=== PATIENT | female | born 1980 | race Caucasian/White ===

== ENCOUNTER 2017-02-01 20:54 | Emergency (ER) | payer SELFPAY ==
[~2017-02-01] VITALS: Ht 162.6 cm; Wt 55.0 kg
[~2017-02-01 20:54] MED LIST: AMOX875 PO; BENZ100 PO; IBUP800T23 PO; ZITH250T PO
[2017-02-01 20:55] VITALS: BP 96/64; PULSE 116; RESP 16; TEMP 98.3; O2SAT 95
--- NOTE | 2017-02-01 22:26 | PD ---
HPI Chief Complaint: Complaint Time Seen by Provider: 22:22 Travel History International Travel<30 days: No Contact w/Intl Traveler<30days: No Traveled to known affect area: No History of Present Illness HPI Patient's 36-year-old female presenting to emergency evaluation of urinary symptoms. Patient states for the last 4 days she has had darker urine, frequency, burning when she urinates. She reports low back pain, no vomiting or nausea. She further denies any abdominal pain, fevers, chills. PFSH Past Medical History Hx Anticoagulant Therapy: No Arthritis: No Asthma: No Autoimmune Disease: No Anxiety: Yes Depression: Yes Heart Rhythm Problems: No Cancer: No Cardiovascular Problems: No High Cholesterol: No Chemotherapy: No Chest Pain: No Congestive Heart Failure: No COPD: No Cerebrovascular Accident: No Diabetes: No Diminished Hearing: No Endocrine: No Gastrointestinal Disorders: Yes GERD: No Genitourinary: No Hiatal Hernia: No Immune Disorder: No Kidney Stones: No Musculoskeletal: No Neurologic: No Reproductive: No Respiratory: No Immunizations Current: Yes Migraines: No Radiation Therapy: No Renal Failure: No Seizures: No Sickle Cell Disease: No Sleep Apnea: No Thyroid Disease: No Ulcer: No ?: Not LMP: 01/07/17 : 4 Para: 2 : 2 Tubal Ligation: Yes Past Surgical History Abdominal Surgery: No AICD: No Arteriovenous Shunt: No Cardiac Surgery: No Ear Surgery: No Endocrine Surgery: No Eye Surgery: No Genitourinary Surgery: No Gynecologic Surgery: Yes (BTL) Insulin Pump: No Joint Replacement: No Oral Surgery: No Pacemaker: No Thoracic Surgery: No Social History Alcohol Use: No Tobacco Use: Yes (1/2 PPD) Substance Use: Yes (MARIJUANA//METHAMPHENAPHINE LAST USE ) Allergies-Medications (Allergen,Severity, Reaction): Coded Allergies: No Known Allergies (Verified , 02/01/17) Reported Meds & Prescriptions Reported Meds & Active Scripts Active No Active Prescriptions or Reported Medications Review of Systems Except as stated in HPI: all other systems reviewed are Neg Genitourinary: Positive: Frequency, Dysuria Physical Exam Narrative GENERAL: Well-developed, well-nourished, alert female. Resting in no acute distress. SKIN: Warm and dry. HEAD: Atraumatic. Normocephalic. EYES: Pupils equal and round. No scleral icterus. No injection or drainage. ENT: No nasal bleeding or discharge. Mucous membranes pink and moist. NECK: Trachea midline. No JVD. CARDIOVASCULAR: Regular rate and rhythm. RESPIRATORY: No accessory muscle use. Clear to auscultation. Breath sounds equal bilaterally. GASTROINTESTINAL: Abdomen soft, non-tender, nondistended. Hepatic and splenic margins not palpable. MUSCULOSKELETAL: Extremities without clubbing, cyanosis, or edema. No obvious deformities. No CVAT bilaterally. NEUROLOGICAL: Awake and alert. No obvious cranial nerve deficits. Motor grossly within normal limits. Five out of 5 muscle strength in the arms and legs. Normal speech. PSYCHIATRIC: Appropriate mood and affect; insight and judgment normal. Data Data Last Documented VS Vital Signs Date Time Temp Pulse Resp B/P Pulse Ox O2 Delivery O2 Flow Rate FiO2 02/01/17 22:29 89 16 110/67 99 02/01/17 20:55 98.3 Room Air Orders Urinalysis - C+S If Indicated (02/01/17 22:08) Urine Culture (02/01/17 22:15) Labs Laboratory Tests Test 02/01/17 22:15 Urine Color DARK-BROWN Urine Turbidity CLOUDY Urine pH 6.0 Urine Specific [place] 1.025 Urine Protein 30 mg/dL Urine Glucose (UA) NEG mg/dL Urine Ketones TRACE mg/dL Urine Occult Blood TRACE Urine Nitrite NEG Urine Bilirubin LARGE Urine Urobilinogen 4.0 MG/DL Urine Leukocyte Esterase TRACE Urine RBC 4 /hpf Urine WBC 20 /hpf Urine Squamous Epithelial 26 /hpf Cells Urine Transitional Epithelial 1 /hpf Cells Urine Renal Epithelial Cells 5 /hpf Urine Bacteria OCC /hpf Urine Hyaline Casts 37 /lpf Urine Mucus MANY /lpf Microscopic Urinalysis Comment CULTURE INDICATED MDM Medical Decision Making Medical Screen Exam Complete: Yes Emergency Medical Condition: Yes Interpretation(s) Vital Signs Date Time Temp Pulse Resp B/P Pulse Ox O2 Delivery O2 Flow Rate FiO2 02/01/17 20:55 98.3 116 16 96/64 95 Room Air Differential Diagnosis UTI versus pyelonephritis versus kidney stone versus other Narrative Course Patient is a 36-year-old female presenting with 4 days of dark urine, dysuria. Patient was tachycardic on arrival, Vital signs reassessed and are stable, patient is afebrile. There is no CVA tenderness bilaterally. Patient looks well-hydrated. Urinalysis ordered and pending Urinalysis is indicative of urinary tract infection with elevated red blood cells, white blood cells, leukocyte esterase. Patient is encouraged to increase fluid intake. She is encouraged to complete full course of antibiotics as prescribed. She was encouraged to return to emergency department for new or worsening symptoms. Patient verbalizes understanding of instructions. Patient is stable for discharge. Diagnosis Primary Impression: Urinary tract infection Qualified Code: N39.0 - Urinary tract infection with hematuria, site unspecified Referrals: [facility] Primary Care Physician Patient Instructions: General Instructions, Urinary Tract Infection in Women ( ED) Additional Instructions: Follow-up with your primary doctor Increase fluid intake Complete full course of antibiotics as prescribed Return to emergency department for any new or worsening symptoms Med/Other Pt SpecificInfo: Prescription(s) given Scripts Ciprofloxacin (Cipro)500 Mg [id number] Mg PO BID 7 Days Ref 0 Prov:Elke Flower 02/01/17 Disposition: 01 DISCHARGE HOME Condition: Stable Elke Flower Feb 01, 2017 22:25
[2017-02-01 22:29] VITALS: BP 110/67; PULSE 89; RESP 16; O2SAT 99
[2017-02-01 22:58] LABS: BACTERIA, URINE OCC /hpf; BLOOD, URINE TRACE (NEG); GLUCOSE,URINE NEG (NEG); HYALINE CAST, URINE 37 /lpf (RARE); KETONE, URINE TRACE mg/dL (NEG); MUCUS URINE MANY /lpf (OCC); NITRITE,URINE NEG (NEG); RENAL EPITHELIAL CELLS 5 /hpf; SQUAMOUS EPITHELIAL CELL URINE 26 /hpf (0-5); TRANSITIONAL EPI CELLS, URINE 1 /hpf
[2017-02-01 23:00] LABS: COMMENT (UR) CULTURE INDICATED; CULTURE IF INDICATED CULTURE INDICATED; URINE COLOR DARK-BROWN (YELLW/STRAW)
[2017-02-01] MEDS ORDERED: CIPR-9 PO (23:06)
[2017-02-01] MEDS ORDERED: CIPROFLOXACIN 500 MG TAB PO ONE (23:15)
== END 2017-02-01 23:39 | disposition home or self-care (01) ==
LOC: NEPD 20:54
DX: N39.0 Urinary tract infection, site not specified (principal); R31.9 Hematuria, unspecified; B96.20 Unspecified Escherichia coli [E. coli] as the cause of diseases classified elsewhere
CPT/HCPCS: 81001; 87077; 87086; 87186; 99283

== ENCOUNTER 2018-04-24 14:31 | Inpatient (IN) ==
[2018-04-24] MEDS ORDERED: Clindamycin Inj 600 MG/4 ML Vial IV.SIG ONE (16:11)
[2018-04-24] MEDS ORDERED: Ketorolac Inj 30 MG/ML (IVP) Vial IV.PUSH ONE (16:11)
[2018-04-24 16:46] LABS: Baso # (Auto) 0.1 th/mm3 (0.0-0.2); Baso % (Auto) 0.8 % (0.0-2.0); Eos # (Auto) 0.1 th/mm3 (0.0-0.4); Eos % (Auto) 1.9 % (0.0-4.0); Hematocrit 41.4 % (35.0-46.0); Hemoglobin 13.7 gm/dL (11.6-15.3); Lymph # (Auto) 2.3 th/mm3 (1.0-4.8); Lymph % (Auto) 30.8 % (9.0-44.0); Mean Corpuscular HGB Conc 33.1 % (32.0-36.0); Mean Corpuscular Hemoglobin 28.4 pg (27.0-34.0); Mean Corpuscular Volume 85.7 fL (80.0-100.0); Mean Platelet Volume 8.4 fL (7.0-11.0); Mono # (Auto) 0.6 th/mm3 (0.0-0.9); Mono % (Auto) 7.7 % (0.0-8.0); Neut # (Auto) 4.3 th/mm3 (1.8-7.7); Neut % (Auto) 58.8 % (16.0-70.0); Platelet Count 200 th/mm3 (150-450); Red Blood Count 4.83 mil/mm3 (4.00-5.30); Red Cell Distribution Width 13.4 % (11.6-17.2); White Blood Count 7.4 th/mm3 (4.0-11.0)
[2018-04-24 17:04] LABS: Calcium 8.5 mg/dL (8.5-10.1); Carbon Dioxide 24.3 meq/L (21.0-32.0)
--- NOTE | 2018-04-24 18:15 | ED ---
HPI General Chief complaint: Dental/Oral Stated complaint: Medical Complaint Time Seen by Provider: 04/24/18 15:47 Source: patient Mode of arrival: ambulatory Limitations: no limitations History of Present Illness HPI narrative: 38-year-old female presents to the emergency department with complaint of swelling to her left lower facial cheek since last night. She says this problem started on March 06 and she has been taking antibiotics that have been given to her by friends and the problem has been coming and going. She says it has never been this bad. Reports history of tooth infection to her left lower jaw. Denies fever, vomiting. Denies sore throat, difficulty swallowing, unusual drooling, lump in throat. Denies alcohol, tobacco use. Reports methamphetamine and marijuana use. Rates pain 05/09. No treatments tried. Said she last took antibiotics a few weeks ago. Primary care provider. No dentist. No known allergies. Reports history of asthma. Has no other medical complaints. No other modifying factors or associated signs and symptoms. Related Data Previous Rx's Medication Instructions Recorded amoxicillin-pot clavulanate 1 tab PO Q12H #28 tab 04/25/18 [Augmentin] dexamethasone 4 mg PO Q8H #15 tab 04/25/18 tramadol 50 mg PO Q6H #12 tab 04/25/18 Allergies Allergy/AdvReac Type Severity Reaction Status Date / Time No Known Allergies Allergy Verified 04/24/18 15:35 Review of Systems ROS: all other systems reviewed are negative [facility] Medical History Medical History Broken back (Acute) Hernia (Acute) Family History Family History Other Family history normal Social History Social History Substance History: Active Abuse Second Hand Smoke Exposure: Yes Smoking Status: Current every day smoker Tobacco Type: Cigarettes Packs Per Day: 0.5 Cigarettes Per Day: 10.0 Years Smoked: 20 Pack-Years: 10.00 How Often Do You Have a Drink Containing Alcohol: Never Recent Travel in [facility] within the Last 8 Weeks: No Recent Out of Country Travel within the Last 8 Weeks: No Substance Abuse Detail Methamphetamine: Substance Use Status: Active Route Used Substance Abuse: Inhalation Marijuana: Substance Use Status: Active Route Used Substance Abuse: Inhalation Immunization History Tetanus Immunization: Unsure Hx Influenza Vaccine This Season: Unable to Assess Exam Narrative Exam Narrative: GENERAL: Well-nourished, well-developed female patient , in no acute distress; afebrile, nontoxic-appearing SKIN: Warm and dry. HEAD: Atraumatic. Normocephalic. Left lower mandibualr area with palpable mass that is nonfluctuant and without erythema; with tenderness on palpation. No lymphadenopathy. EYES: Pupils equal and round. No scleral icterus. No injection or drainage. ENT: Mucosa pink and moist. No erythema or exudates. No uvular edema. No uvular , palatal, or tonsillar deviation. Airway patent. EARS: Bilateral pinnae and external canals appear within normal limits. Bilateral tympanic membranes without erythema, dullness or perforation. MOUTH: Mucous membranes moist, no lesions, tongue and gums appear normal. Poor dentition throughout. Partially edentulous. Left lower, I believe first molar , with complex dental cavity and decay; with tenderness on palpation. There is no fluctuance or outpouching to the left lower gingiva. Surrounding gingiva is without erythema, edema, drainage. No obvious gingival abscess noted. NECK: Trachea midline. No lymphadenopathy. CARDIOVASCULAR: Regular rate. RESPIRATORY: No accessory muscle use. GASTROINTESTINAL: Flat. MUSCULOSKELETAL: No obvious deformities. No clubbing. No cyanosis. No edema. NEUROLOGICAL: Awake and alert. Oriented 3. No obvious cranial nerve deficits. Motor grossly within normal limits. Normal speech. PSYCHIATRIC: Appropriate mood and affect; insight and judgment normal. Course Initial Documented Vital Signs Temperature 97.6 F 04/24/18 14:33 Pulse Rate 106 H 04/24/18 14:33 Respiratory Rate 18 04/24/18 14:33 Blood Pressure 137/66 04/24/18 14:33 Pulse Oximetry 95 04/24/18 14:33 Last Documented Vital Signs Temperature 97.2 F L 04/25/18 08:00 Pulse Rate 67 04/25/18 08:00 Respiratory Rate 18 04/25/18 08:00 Blood Pressure 101/58 L 04/25/18 08:00 Pulse Oximetry 96 04/25/18 08:00 Medical Decision Making [facility] Narrative Medical decision making narrative: 38-year-old female with left mandibular facial abscess. She is afebrile and nontoxic-appearing. Denies fever, vomiting. Reports methamphetamine and marijuana use. There is no fluctuance of the oral mucosa to the left lower jaw to perform an I&D. I spoke with Dr. Du and plan of care discussed. CBC, BMP, IV, Toradol, clindamycin 600 mg IV, Decadron, CT facial bones with IV contrast ordered. 1814: CBC, BMP unremarkable. 1950 CT imaging results are back. There is an abnormal appearance to the left perimandibular soft tissues with possible abscess in the masseter muscle, probably related to and connected to a peridental abscess in the last molar on the left side. Patient has recently been on amoxicillin. Due to failed outpatient treatment, patient will be admitted for IV antibiotics. Call has been placed to [facility] for admission. Medical Screen Exam Complete: Yes Emergency Medical Condition: Yes Differential Diagnosis Differential Diagnosis: Facial abscess, dental abscess, dentalgia, complex dental cavity Lab Data Result diagrams: 04/25/18 04:08 04/25/18 04:08 POC Results POC Urine Results Negative Lab Results 04/24/18 04/24/18 04/25/18 Range/Units 16:35 16:35 04:08 WBC 7.4 4.1 (4.0-11.0) th/mm3 RBC 4.83 4.57 (4.00-5.30) mil/mm3 Hgb 13.7 12.9 (11.6-15.3) gm/dL Hct 41.4 38.7 (35.0-46.0) % MCV 85.7 84.8 (80.0-100.0) fL MCH 28.4 28.1 (27.0-34.0) pg MCHC 33.1 33.2 (32.0-36.0) % RDW 13.4 13.4 (11.6-17.2) % Plt Count 200 188 (150-450) th/mm3 MPV 8.4 8.7 (7.0-11.0) fL Neut % (Auto) 58.8 80.8 H (16.0-70.0) % Lymph % (Auto) 30.8 15.4 (9.0-44.0) % [place] % (Auto) 7.7 3.3 (0.0-8.0) % Eos % (Auto) 1.9 0.1 (0.0-4.0) % Baso % (Auto) 0.8 0.4 (0.0-2.0) % Neut # (Auto) 4.3 3.3 (1.8-7.7) th/mm3 Lymph # (Auto) 2.3 0.6 L (1.0-4.8) th/mm3 [place] # (Auto) 0.6 0.1 (0.0-0.9) th/mm3 Eos # (Auto) 0.1 0.0 (0.0-0.4) th/mm3 Baso # (Auto) 0.1 0.0 (0.0-0.2) th/mm3 WBC Differential . . Differential Comment Auto diff final Auto diff final Sodium 142 (136-145) meq/L Potassium 4.0 (3.5-5.1) meq/L Chloride 108 H (98-107) meq/L Carbon Dioxide 24.3 (21.0-32.0) meq/L Anion Gap 10 (5-15) meq/L BUN 10 (7-18) mg/dL Creatinine 0.77 (0.50-1.00) mg/dL Estimated GFR 84 L (>89) mL/min Random Glucose 70 L (74-106) mg/dL Calcium 8.5 (8.5-10.1) mg/dL 04/25/18 Range/Units 04:08 WBC (4.0-11.0) th/mm3 RBC (4.00-5.30) mil/mm3 Hgb (11.6-15.3) gm/dL Hct (35.0-46.0) % MCV (80.0-100.0) fL MCH (27.0-34.0) pg MCHC (32.0-36.0) % RDW (11.6-17.2) % Plt Count (150-450) th/mm3 MPV (7.0-11.0) fL Neut % (Auto) (16.0-70.0) % Lymph % (Auto) (9.0-44.0) % [place] % (Auto) (0.0-8.0) % Eos % (Auto) (0.0-4.0) % Baso % (Auto) (0.0-2.0) % Neut # (Auto) (1.8-7.7) th/mm3 Lymph # (Auto) (1.0-4.8) th/mm3 [place] # (Auto) (0.0-0.9) th/mm3 Eos # (Auto) (0.0-0.4) th/mm3 Baso # (Auto) (0.0-0.2) th/mm3 WBC Differential Differential Comment Sodium 142 (136-145) meq/L Potassium 3.9 (3.5-5.1) meq/L Chloride 107 (98-107) meq/L Carbon Dioxide 24.7 (21.0-32.0) meq/L Anion Gap 10 (5-15) meq/L BUN 12 (7-18) mg/dL Creatinine 0.59 (0.50-1.00) mg/dL Estimated GFR Greater than 89 (>89) mL/min Random Glucose 136 H (74-106) mg/dL Calcium 8.0 L (8.5-10.1) mg/dL Imaging Data Radiologist's impression: Face CT 04/24/18 16:21 CONCLUSION: 1. Abnormal appearance to the left perimandibular soft tissues with possible abscess in the masseter muscle, probably related to and connected to a peridental abscess in the last molar on the left side. Discharge Plan Discharge Disposition Patient Disposition: 30 Still Patient Discharge Condition Condition: Stable Discharge Order Discharge Orders: Discharge Order (Routine); Ordered 04/25/18 Ordered By: Himanshu Maria Discharge Details Anticipated Discharge Date: 04/25/18 Discharge Comment: Okay to discharge now (11:30AM). Diagnosis: Dental abscess, Cellulitis and abscess of face Physicians Team ED Provider: Pedro Du Primary Care Provider: Primary Care Talati,Isatu Attending Provider: Himanshu Maria Other Providers: Davy Hawley Status ED Status: Left Department Discharge Information Discharge Date/Time: 04/25/18 01:08
--- NOTE | 2018-04-24 19:45 | CT ---
EXAM DATE: 04/24/2018 5:22 PM EDT AGE/SEX: 38 years / Female INDICATIONS: Swelling and pain to left side of jaw. CLINICAL DATA: This is the patient's initial encounter. Patient reports that signs and symptoms have been present for 1 day and indicates a pain score of 10/10. MEDICAL/SURGICAL HISTORY: None. Tubal ligation. RADIATION DOSE: 56.68 CTDI (mGy) COMPARISON: No prior exams available for comparison. TECHNIQUE: Contiguous images in the axial and coronal planes were obtained using helical multirow de tector technique with 70 ml Omnipaque 350 (iohexol) nonionic water-soluble contrast as a single exam dose. Using automated exposure control and adjustment of the mA and/or kV according to patient size , radiation dose was kept as low as reasonably achievable to obtain optimal diagnostic quality images . DICOM format image data is available electronically for review and comparison. FINDINGS: There is asymmetric soft tissue swelling and subcutaneous fat induration in the left perimandibular r egion. Within the left masseter muscle on axial image #53, there is an 8 mm rounded area of enhanceme nt suggestive of an abscess. Immediately adjacent to this abnormality is a discontinuity in the later al cortex of the body of the mandible. The last molar on the left also has an abnormal appearance wit h hypodensity about the roots and connection to the cortical discontinuity. This suggests dental orig in for the left perimandibular abscess. There are multiple left jugular nodes measuring up to 10 mm in size, asymmetric when compared to the contralateral side. Prevertebral soft tissues are normal in thickness. The bony maxilla is intact. Th ere is bilateral concentric mucosal thickening in the maxillary sinuses, left greater than right with out air-fluid level. There is also opacity of several ethmoid air cells.. CONCLUSION: 1. Abnormal appearance to the left perimandibular soft tissues with possible abscess in the masseter muscle, probably related to and connected to a peridental abscess in the last molar on the left side . Electronically signed by: Alexis Kohler MD 04/24/2018 7:43 PM EDT
[2018-04-24] MEDS ORDERED: Acetaminophen 325 MG Tablet PO PRN (20:15)
[2018-04-24] MEDS: Sod Chloride 0.9% Inj 1,000 ML IV.CONT SCH (21:00)
--- NOTE | 2018-04-24 21:13 | P.HPIM ---
History of Present Illness Service: [facility] Primary Care Physician: No Primary Care Physician Chief Complaint: left facial swelling History of Present Illness: 38 y/o female with no medical history that uses methamphetamines presented to the ED with pain and swelling to her left face/jaw. Patient states 1 month ago this started originally due to an infected tooth, she took antibiotics from a friend for about a week but in unsure of the medication or dose. She states the tooth fell out and the pain/swelling went away. Last night she states it returned and she had associated fever and chills. She states the pain is throbbing, constant, 8/10, with no radiation, worse with eating and better with ice. She has not seen a dentist due to insurance issues. She last used meth 2 weeks ago. Inpatient Certification: I certify that the inpatient services were ordered in accordance with Medicare regulations governing the order. This includes certification that hospital inpatient services are reasonable and necessary and in the case of services not specified as inpatient-only under 42 CFR 419.22(n), that they are appropriately provided as inpatient services in accordance to with the 2-midnight benchmark under 43 CFR 412.3(e) Estimated Total Length of Stay (Days): 2 Plans for Post Hospital Care: Home Review of Systems All other systems reviewed negative except as stated in HPI PMFSH - History History Provided By: Patient - Medical History Medical History: Medical History (Last Reviewed 04/24/18 @ 23:45 by CARMEN Red) Broken back (Acute) Hernia (Acute) - Surgical History Surgical History: Surgical History (Last Reviewed 04/24/18 @ 23:45 by CARMEN Red) H/O tubal ligation (Acute) - Family History Family History: Family History (Last Updated 04/24/18 @ 23:45 by CARMEN Red) Other Family history normal - Social History I have reviewed the patient's Social History: Yes - Tobacco History Second Hand Smoke Exposure: Yes Tobacco Use In Past 30 Days: Yes Smoking Status: Current every day smoker Tobacco Type: Cigarettes Packs Per Day: 0.5 Years Smoked: 20 - Alcohol History How Often Do You Have a Drink Containing Alcohol: Monthly or less - Substance Use History Substance History: Active Abuse - Substance Use Type Methamphetamine Status: Active Route Used: Inhalation Marijuana Status: Active Route Used: Inhalation - Travel History Recent Travel in the [place] Within the Last 8 Weeks: No Recent Travel Out of the Country Within the Last 8 Weeks: No - Immunization History Tetanus Immunization: Unsure Hx Influenza Vaccine This Season: Unable to Assess Medications and Allergies Active Medications: Active Medications Acetaminophen (Tylenol) 650 mg PO Q4H PRN PRN Reason: Temp > 100.4 Dexamethasone Sodium Phosphate (Decadron Inj) 4 mg IV.PUSH Q6HR CEASAR Clindamycin/Sodium Chloride (Cleocin 900 Mg/Ns Premix) 900 mg in 50 mls @ 100 mls/hr IV.SIG Q8H CEASAR Sodium Chloride (Ns Inj) 1,000 mls @ 100 mls/hr IV.CONT .Q10H CEASAR Ondansetron HCl (Zofran Inj) 4 mg IV.PUSH Q6H PRN PRN Reason: NAUSEA OR VOMITING Allergies Allergy/AdvReac Type Severity Reaction Status Date / Time No Known Allergies Allergy Verified 04/24/18 15:35 Home Medications Medication Instructions Recorded Confirmed Type No Known Home Medications 04/24/18 04/24/18 History Exam Vital signs: Vital Signs 04/24/18 14:33 04/24/18 14:39 04/24/18 17:00 Temperature 97.6 F Pulse Rate 106 H Respiratory Rate 18 20 16 Blood Pressure 137/66 Pulse Oximetry 95 04/24/18 18:22 Temperature 97.8 F Pulse Rate 89 Respiratory Rate 16 Blood Pressure 120/76 Pulse Oximetry 99 Intake & Output 04/24/18 04/24/18 04/25/18 06:59 18:59 06:59 Weight 54.431 kg Narrative: GENERAL: This is a well-nourished, well-developed patient, in no apparent distress. SKIN:left mandible swelling with erythema CARDIOVASCULAR: Regular rate and rhythm without murmurs, gallops, or rubs. RESPIRATORY: Clear to auscultation. Breath sounds equal bilaterally. No wheezes , rales, or rhonchi. GASTROINTESTINAL: Abdomen soft, non-tender, nondistended. Normal active bowel sounds MUSCULOSKELETAL: Extremities without clubbing, cyanosis, or edema. NEURO: Alert & Oriented x4 to person, place, time, situation. Moves all ext x4 Results - Labs CBC & Chem 7: 04/24/18 16:35 04/24/18 16:35 Labs: Short CBC 04/24/18 Range/Units 16:35 WBC 7.4 (4.0-11.0) th/mm3 Hgb 13.7 (11.6-15.3) gm/dL Hct 41.4 (35.0-46.0) % Plt Count 200 (150-450) th/mm3 BMP 04/24/18 16:35 Sodium 142 Potassium 4.0 Chloride 108 H Carbon Dioxide 24.3 BUN 10 Creatinine 0.77 Calcium 8.5 - Imaging Impressions Face CT 04/24/18 16:21 CONCLUSION: 1. Abnormal appearance to the left perimandibular soft tissues with possible abscess in the masseter muscle, probably related to and connected to a peridental abscess in the last molar on the left side. Caprini VTE Risk Assessment Caprini VTE Risk Assessment: No/Low Risk (score <= 1) Caprini Risk Assessment Model: Point Value = 1 Point Value = 2 Point Value = 3 Point Value = 5 Age 41-60 Minor surgery BMI > 25 kg/m2 Swollen legs Varicose veins or History of unexplained or recurrent spontaneous Oral contraceptives or hormone replacement Sepsis (< 1 month) Serious lung disease, including pneumonia (< 1 month) Abnormal pulmonary function Acute myocardial infarction Congestive heart failure (< 1 month) History of inflammatory bowel disease Medical patient at bed rest Age 61-74 Arthroscopic surgery Major open surgery (> 45 min) Laparoscopic surgery (> 45 min) Malignancy Confined to bed (> 72 hours) Immobilizing plaster cast Central venous access Age >= 75 History of VTE Family history of VTE Factor V Leiden Prothrombin [id number] Lupus anticoagulant Anticardiolipin antibodies Elevated serum homocysteine Heparin-induced thrombocytopenia Other congenital or acquired thrombophilia Stroke (< 1 month) Elective arthroplasty Hip, pelvis, or leg fracture Acute spinal cord injury (< 1 month) Prophylaxis Regimen: Total Risk Factor Score Risk Level Prophylaxis Regimen 0-1 Low Early ambulation 2 Moderate Order ONE of the following: *Sequential Compression Device (SCD) *Heparin 5000 units SQ BID 3-4 Higher Order ONE of the following medications: *Heparin 5000 units SQ TID *Enoxaparin/Lovenox 40 mg SQ daily (WT < 150 kg, CrCl > 30 mL/min) *Enoxaparin/Lovenox 30 mg SQ daily (WT < 150 kg, CrCl > 10-29 mL/min) *Enoxaparin/Lovenox 30 mg SQ BID (WT < 150 kg, CrCl > 30 mL/min) AND/OR *Sequential Compression Device (SCD) 5 or more Highest Order ONE of the following medications: *Heparin 5000 units SQ TID (Preferred with Epidurals) *Enoxaparin/Lovenox 40 mg SQ daily (WT < 150 kg, CrCl > 30 mL/min) *Enoxaparin/Lovenox 30 mg SQ daily (WT < 150 kg, CrCl > 10-29 mL/min) *Enoxaparin/Lovenox 30 mg SQ BID (WT < 150 kg, CrCl > 30 mL/min) AND *Sequential Compression Device (SCD) Assessment and Plan - Plan 38 y/o female with no medical history that uses methamphetamines presented to the ED with pain and swelling to her left face/jaw. Left mandible abscess Face CT reviewed and shows an abnormal appearance to the left perimandibular soft tissues with possible abscess -Consult to oromaxillofacial for evaluation -NPO, IVF -Pain management with IV morphine -Dexamethasone IV Q6h -Antibiotics: Clindamycin IV Q8h Methamphetamine abuse -Encouraged to quit DVT prophylaxis: SCDs Discussed Condition With: Patient and RN
[2018-04-25] MEDS: Clindamycin 900 mg/NS Premix 900 MG/50 ML PIGGYBACK IV.SIG SCH ×2 (01:50→09:03)
[2018-04-25] MEDS: Morphine Sulfate Inj 2 MG/ML Vial IV.PUSH PRN ×2 (02:12→09:04)
[2018-04-25 05:21] LABS: Baso % (Auto) 0.4 % (0.0-2.0); Eos % (Auto) 0.1 % (0.0-4.0); Hematocrit 38.7 % (35.0-46.0); Hemoglobin 12.9 gm/dL (11.6-15.3); Lymph # (Auto) 0.6 th/mm3 (1.0-4.8); Lymph % (Auto) 15.4 % (9.0-44.0); Mean Corpuscular HGB Conc 33.2 % (32.0-36.0); Mean Corpuscular Hemoglobin 28.1 pg (27.0-34.0); Mean Corpuscular Volume 84.8 fL (80.0-100.0); Mean Platelet Volume 8.7 fL (7.0-11.0); Mono # (Auto) 0.1 th/mm3 (0.0-0.9); Mono % (Auto) 3.3 % (0.0-8.0); Neut # (Auto) 3.3 th/mm3 (1.8-7.7); Neut % (Auto) 80.8 % (16.0-70.0); Platelet Count 188 th/mm3 (150-450); Red Blood Count 4.57 mil/mm3 (4.00-5.30); Red Cell Distribution Width 13.4 % (11.6-17.2); White Blood Count 4.1 th/mm3 (4.0-11.0)
[2018-04-25 05:41] LABS: Anion Gap 10 meq/L (5-15); Blood Urea Nitrogen 12 mg/dL (7-18); Carbon Dioxide 24.7 meq/L (21.0-32.0); Chloride 107 meq/L (98-107); Glomerular Filtration Rate Greater Than 89 mL/min (>89); Glucose,Random 136 mg/dL (74-106); Potassium 3.9 meq/L (3.5-5.1); Sodium 142 meq/L (136-145)
[2018-04-25] MEDS: Sod Chloride 0.9% Inj 1,000 ML IV.CONT SCH (09:03)
[2018-04-25 09:30] VITALS: BP 101/58; PULSE 67; RESP 18; TEMP 97.2; O2SAT 96
--- NOTE | 2018-04-25 12:12 | P.PN ---
Subjective Interval history: Follow-up for dental abscess. Patient is currently doing well. She reports no fever or chills. She her left jaw area swelling is also improved. Physical Exam Vital signs: Vital Signs 04/24/18 14:33 04/24/18 14:39 04/24/18 17:00 Temperature 97.6 F Pulse Rate 106 H Respiratory Rate 18 20 16 Blood Pressure 137/66 Pulse Oximetry 95 04/24/18 18:22 04/24/18 22:20 04/25/18 01:10 Temperature 97.8 F 97.8 F Pulse Rate 89 84 75 Respiratory Rate 16 16 16 Blood Pressure 120/76 109/62 104/58 L Pulse Oximetry 99 97 95 04/25/18 03:38 04/25/18 04:00 04/25/18 07:00 Temperature 97.7 F Pulse Rate 73 Respiratory Rate 18 16 12 Blood Pressure 96/54 L Pulse Oximetry 95 04/25/18 08:00 Temperature 97.2 F L Pulse Rate 67 Respiratory Rate 18 Blood Pressure 101/58 L Pulse Oximetry 96 Intake & Output 04/24/18 04/25/18 04/25/18 18:59 06:59 18:59 Intake Total 50 / 50 1050 / 1050 Balance 50 / 50 1050 / 1050 Weight 54.431 kg 55.8 kg Intake: IV 50 / 50 1050 / 1050 NS Inj 1,000 ML @ 100 mls/hr IV 1000 / 1000 .CONT .Q10H CEASAR Rx#:[id number] Cleocin 900 mg/NS Premix 900 mg 50 / 50 50 / 50 In 50 ml @ 100 mls/hr IV.SIG Q8H CEAS[facility] Rx#:[id number] Other: # Voids 1 Date of Last Bowel Movement 04/23/18 Weight On Admission 54.431 kg Narrative: GENERAL: Alert, oriented 3, NAD. SKIN: Warm and dry. HEAD: Normocephalic. Left jaw area has swelling and tenderness. No erythema present no drainage. EYES: No scleral icterus. No injection or drainage. NECK: Supple, trachea midline. No JVD or lymphadenopathy. CARDIOVASCULAR: Regular rate and rhythm without murmurs, gallops, or rubs. RESPIRATORY: Breath sounds equal bilaterally. No accessory muscle use. GASTROINTESTINAL: Abdomen soft, non-tender, nondistended. MUSCULOSKELETAL: No cyanosis, or edema. BACK: Nontender without obvious deformity. No CVA tenderness. Results - Labs CBC & Chem 7: 04/25/18 04:08 04/25/18 04:08 Laboratory Results - last 24 hr 04/24/18 04/24/18 04/25/18 16:35 16:35 04:08 WBC 7.4 4.1 RBC 4.83 4.57 Hgb 13.7 12.9 Hct 41.4 38.7 MCV 85.7 84.8 MCH 28.4 28.1 MCHC 33.1 33.2 RDW 13.4 13.4 Plt Count 200 188 MPV 8.4 8.7 Neut % (Auto) 58.8 80.8 H Lymph % (Auto) 30.8 15.4 [place] % (Auto) 7.7 3.3 Eos % (Auto) 1.9 0.1 Baso % (Auto) 0.8 0.4 Neut # (Auto) 4.3 3.3 Lymph # (Auto) 2.3 0.6 L [place] # (Auto) 0.6 0.1 Eos # (Auto) 0.1 0.0 Baso # (Auto) 0.1 0.0 WBC Differential . . Differential Comment Auto diff final Auto diff final Sodium 142 Potassium 4.0 Chloride 108 H Carbon Dioxide 24.3 Anion Gap 10 BUN 10 Creatinine 0.77 Estimated GFR 84 L Random Glucose 70 L Calcium 8.5 04/25/18 04:08 WBC RBC Hgb Hct MCV MCH MCHC RDW Plt Count MPV Neut % (Auto) Lymph % (Auto) [place] % (Auto) Eos % (Auto) Baso % (Auto) Neut # (Auto) Lymph # (Auto) [place] # (Auto) Eos # (Auto) Baso # (Auto) WBC Differential Differential Comment Sodium 142 Potassium 3.9 Chloride 107 Carbon Dioxide 24.7 Anion Gap 10 BUN 12 Creatinine 0.59 Estimated GFR Greater than 89 Random Glucose 136 H Calcium 8.0 L - Imaging Impressions Face CT 04/24/18 16:21 CONCLUSION: 1. Abnormal appearance to the left perimandibular soft tissues with possible abscess in the masseter muscle, probably related to and connected to a peridental abscess in the last molar on the left side. Assessment and Plan - Plan 38 y/o female with no medical history that uses methamphetamines presented to the ED with pain and swelling to her left face/jaw. Left mandible abscess Face CT reviewed and shows an abnormal appearance to the left perimandibular soft tissues with possible abscess - Discussed with plastic surgery today. Plastic surgeon is unable to address dental abscess. - I discussed at length with patient and her mother as well as oral surgeon's office. - We will discharge patient home with oral antibiotics and dexamethasone. She will see the oral surgeon at 1 PM today. Oral surgeon will consider I&D as well as tooth extraction. Approximate cost was discussed with patient's mother who agreed to pay out of pocket. -We will continue Augmentin upon discharge. Dexamethasone 4 mg every 8 hours. Also tramadol 50 mg every 6 hours as needed for pain. Methamphetamine abuse -Encouraged to quit Full code. Ambulation. Discharge patient to home Condition on discharge: Improved Regular Diet as tolerated. NPO for now until seen by oral surgery in their office. Ad Olimpia activity Rx written: Augmentin [id number] every 12 hours #28 Dexamethasone 4 mg every 8 hours #15 Tramadol 50 mg p.o. every 6 hours as needed for pain #12. Follow-up with primary care physician as needed. Oral surgery appointment with Dr. Rose at 1 PM on 04/25/2018.
[2018-04-26] MEDS ORDERED: Influenza (Quadrivalent) Vaccine 0.5 ML Syringe IM ONE (09:00)
== END 2018-04-25 12:17 | disposition home or self-care (01) ==
LOC: NEPD 14:31 → NEDA 20:46 → N05 04-25 01:08
PROVIDERS: ADMIT Hospitalist; ATTEND Hospitalist